=== PATIENT | male | born 1950 | race Caucasian/White ===

== ENCOUNTER 2020-11-20 05:10 | Observation (INO) ==
--- NOTE | 2020-11-14 09:49 | Anesthesiology Consultation ---
Date of Service November 14, 2020 Assessment & Plan (1) Encounter for pre-operative examination: COVID Status: As of 11/07 nurse assessment, patient denies travel to endemic area, known exposure/sick contacts, or symptoms of COVID19. Preoperative COVID19 testing completed on 11/14 at [facility], results pending. Chart Review Chart Review: Acceptable Risk for Surgery and Patient seen in Pre Admission Testing (09/12/20) Teaching & Discussion Instructed NPO after midnight before surgery, except medications with 15 cc of water. Medication instructions provided according to the PAT guidelines. History Surgery Operation Date: 11/20/20 09:35 Proposed Procedures p Left Total Hip Arthroplasty Anterior - Robetrh Fabian DO Case originally scheduled for 10/08, but patient had plans to travel to [place] and the required post-travel quarantine resulted in his surgery date being moved. Patient was seen in PAT by me on 09/12. Vitals and PE below are from that visit. Height/Weight Height: 5 ft 11 in Weight: 96.162 kg Allergies Allergy/AdvReac Type Severity Reaction Status Date / Time No Known Allergies Allergy Verified 11/07/20 13:54 Medications Home Medications Medication Instructions Recorded Confirmed Last Taken meloxicam 15 mg PO QAM 09/05/20 11/07/20 Unknown rosuvastatin 10 mg PO QPM 09/05/20 11/07/20 Unknown vit C,Q-Ii-nazun-lutein-zeaxan 1 tab PO BID 09/05/20 11/07/20 Unknown [PreserVision AREDS-2] Past Medical History Medical History Hearing deficit BL ANGEL History of colon polyps History of DVT (deep vein thrombosis) RLE approx 6 years ago - treated w/ AC - unk etiology History of migraine Hyperlipidemia Osteoarthritis Exercise / Class Metabolic Activity II 4-5 Yardwork/Stairs/Walk up hill Past Family History Family History Other No family history of adverse response to anesthesia Past Surgical History Surgical History History of colonoscopy History of hand surgery Rt finger Past Anesthesia History No Hx of Anesthesia Complications and No Family Hx of Anesthesia Complications History of PONV No Hx of PONV and No Hx of Motion Sickness Social History Smoking Status: Never smoker Do You Dip or Chew Tobacco: No Hx Alcohol Use: Yes Alcohol type: beer alcohol intake frequency: a few times a month Hx Substance Use: No substance use type: does not use Physical Exam Vital Signs BP: 127/76 P: 55bpm SPO2: 96% RA T: 98.4 F R: 16 ENMT Mouth: no dental restorations, no chipped teeth and no loose teeth Thyromental Distance: > or= 3.5 Finger Breadths Mallampati Class: I Large uvula. Neck normal visual inspection; neck extension not limited Respiratory normal respiratory effort Auscultation: lungs clear to auscultation bilaterally Cardiovascular Rate/Rhythm: regular rhythm and + bradycardic Heart Sounds: no murmur Vessels: no carotid bruit Extremities: + edema (RLE trace pitting, normal LLE) Testing Laboratory Results 11/07/20 WBC: 6.94 H/H: 15.1/47.5 PLATELETS: 223 SODIUM: 143 POTASSIUM: 4.3 CHLORIDE: 103 CO2: 29 BUN: 20 CREATININE: 1.0 GLUCOSE: 59 PT: 13.4 PTT: 32 INR: 1.01 UA: WNL 09/12/20 TYPE AND SCREEN: B+, antibody - A1C: 5.8% Electrocardiogram Date: 09/12/20 Findings: + SB @ (52bpm) With PACs. Chest X-Ray Date: 09/12/20 Findings: + NAD
--- NOTE | 2020-11-19 20:46 | History & Physical Report ---
Date of Service November 20, 2020 Assessment & Plan (1) Degenerative joint disease of left hip: I have indicated the patient for left anterior total hip replacement. The risks, benefits and complications of surgery were explained to the patient which include but not limited to infection, acute blood loss, DVT/PE, injury to nerves, vessels, bone, soft tissue, arthrofibrosis, chronic pain, failure of the prosthesis, hip dislocation, leg length discrepancy, need for additional surgery, cardiac and pulmonary events and . The patient wished to proceed with surgery and informed consent was obtained at this time. We will plan for Lovenox post-operatively for DVT prophylaxis, patient has hx for RLE DVT. Upon discharge the patient will be discharged home with home health services. Appropriate clearances by PCP were obtained. History of Present Illness Chief Complaint: Left hip pain/DJD Primary Care Provider: KIRA Wu The patient is a 70 year old male who presents with complaints of severe left hip pain and DJD. The patient has failed outpatient conservative treatments to this point which included NSAIDS, IA corticosteroid injection and a home exercise/walking program. The patient's pain and limited function have progressed to the point where they severely hinder their activities of daily living and they no longer tolerate exercise programs. They are requesting to proceed with total hip replacement surgery. Allergies Allergy/AdvReac Type Severity Reaction Status Date / Time No Known Allergies Allergy Verified 11/07/20 13:54 Home Medications Medication Instructions Recorded Confirmed Type meloxicam 15 mg PO QAM 09/05/20 11/20/20 History rosuvastatin 10 mg PO QPM 09/05/20 11/20/20 History vit C,X-Ri-wkinz-lutein-zeaxan 1 tab PO BID 09/05/20 11/20/20 History [PreserVision AREDS-2] Past Med/Surg History Medical History Hearing deficit BL ANGEL History of colon polyps History of DVT (deep vein thrombosis) RLE approx 6 years ago - treated w/ AC - unk etiology History of migraine Hyperlipidemia Osteoarthritis Surgical History History of colonoscopy History of hand surgery Rt finger Family History Other No family history of adverse response to anesthesia Social History Smoking Status: Never smoker Second Hand Exposure: No; Do You Dip or Chew Tobacco: No; Hx Alcohol Use: Yes Alcohol type: beer Hx Substance Use: No Preferred Language: Cuban Communication Ability: Effective Dragger Required: No Beliefs That Will Affect Care: None Current Living Situation: Spouse Feels Safe at Home: Yes Safety Concerns: Feels Safe At This Time Assistive Devices: Cane, Glasses and Hearing Aid - Bilateral Assistive Devices Comment: cane prn Review of Systems Review of Systems: All systems reviewed & are unremarkable except as noted in HPI & below Constitutional: as per Subjective / HPI Physical Exam Physical Exam: LLE NVSI +EHL/FHL/TA/GS SILT grossly, +2 DP pulse, compartments soft NT, limited painful ROM of the hip, antalgic gait. Constitutional: WD/WN, vitals as above Eyes: PERRL, conjunctivae normal, anicteric sclerae ENMT: external ear and nose normal, oropharynx normal Neck: trachea midline, no thyromegaly Respiratory: normal respiratory effort, lungs clear to auscultation Cardiovascular: RRR, no murmur, no edema Gastrointestinal (Abdomen): normal bowel sounds, soft, nontender, no hepatosplenomegaly Musculoskeletal: no cyanosis or clubbing, extremities motor strength 5/5 Skin: no rashes, warm and dry Psychiatric: A+Ox3, euthymic affect Lymphatic: no cervical or axillary lymphadenopathy Results & Data Results & Data ([facility]) Diagnostic Findings Multiple views of the hip demonstrates severe DJD with complete loss of the joint space. +osteophytes, +sclerosis, +subchondral cysts.
[2020-11-20] MEDS ORDERED: GABAPENTIN 300 MG CAP PO SCH (06:00)
[2020-11-20] MEDS ORDERED: METOCLOPRAMIDE HCL 10 MG TABLET PO SCH (06:00)
[2020-11-20] MEDS ORDERED: FAMOTIDINE 20 MG TAB PO SCH (06:00)
[2020-11-20] MEDS ORDERED: dexAMETHasone 4 MG TAB PO SCH (06:00)
[2020-11-20] MEDS ORDERED: LR 500ML BOLUS, THEN 15ML/HR IV SCH (06:00)
[2020-11-20] MEDS ORDERED: TRANEXAMIC ACID 1,000 MG **IV Pre-op IV SCH (06:00)
[2020-11-20] MEDS ORDERED: ceFAZolin 2000MG 2,000 MG/15 ML SYR IV SCH (06:00)
[2020-11-20] MEDS ORDERED: TRANEXAMIC ACID 1,000 MG **IV Intra-op IV SCH (06:00)
[2020-11-20] MEDS ORDERED: ACETAMINOPHEN 500 MG TAB PO SCH (06:00)
[2020-11-20] MEDS ORDERED: CeleBREX 200 MG CAP PO SCH (06:00)
[2020-11-20] MEDS ORDERED: BUPIVACAINE 0.5 % 5 MG/1 ML PF 10ML VIAL ONE (06:31)
[2020-11-20] MEDS ORDERED: PROPOFOL IV EMULSION 10 MG/ML 20 ML VIAL IV ONE ×2 (06:35→08:39)
[2020-11-20] MEDS ORDERED: MIDAZOLAM HCL 1 MG/ML 2ML VIAL ONE (06:35)
[2020-11-20] MEDS ORDERED: LIDOCAINE HCL 2% 2 ML VIAL/AMP(20MG/ML) INFIL ONE (06:35)
[2020-11-20] MEDS ORDERED: BACITRACIN INJ 50,000 UNIT VIAL ONE (06:54)
--- NOTE | 2020-11-20 06:58 | History & Physical Bridge Note ---
Date of Service November 20, 2020 History & Physical Bridge Note I have examined the patient, reviewed the History & Physical and in the interval since the performance of the History & Physical I have noted the following changes of clinical significance: no changes noted
[2020-11-20] MEDS ORDERED: ATROPINE SULFATE 0.1 MG/ML 10ML SYR IV PRN (08:26)
[2020-11-20] MEDS ORDERED: ePHEDrine sulfate 50 MG/ML AMP IV PRN (08:26)
[2020-11-20] MEDS ORDERED: ePHEDrine sulfate 50 MG/ML SYR ONE (08:39)
--- NOTE | 2020-11-20 09:48 | Fluoroscopy Report ---
FL hip LT 1V HISTORY: 70 years-old Male LT ANTERIOR TOTAL left hip total joint arthroplasty COMPARISON: None TECHNIQUE: 2 spot fluoroscopic images of the left hip were obtained utilizing 43.4 seconds fluoroscop y time. FINDINGS: Moderate right hip osteoarthritis. Left hip total joint arthroplasty. Expected postoperative soft tis mike swelling and deep tissue air. Satisfactory alignment without acute fracture or retained foreign b nilo. IMPRESSION: Left hip total joint arthroplasty with expected postoperative changes. ACT 112: Negative or not required by law. The above report was generated using voice recognition software. It may contain grammatical, syntax o r spelling errors. Electronically signed by: Chon Uribe M.D. 11/20/2020 9:46 AM
--- NOTE | 2020-11-20 09:50 | Post Operative Brief Note ---
Immediate Post Op Note v1 Date of Surgery November 20, 2020 Pre & Post Diagnosis Operation Date: 11/20/20 07:15 Pre-Op Diagnosis: Unilateral Primary Osteoarthritis Hip Left Post-Op Diagnosis: Unilateral Primary Osteoarthritis Hip Left I identified the patient and participated in the time-out.: Yes Procedure Operation Date: 11/20/20 07:15 Actual Procedures p Left Total Hip Arthroplasty Anterior(Left) - Roberth Fabian DO Surgeon Roberth Fabian DO Humidifier Maintenance Worker none Estimated Blood Loss 185 Findings Consistent with Post-Op Diagnosis Fluids 1800 cc LR Specimens femoral head Anesthesia Type Spinal MAC Complications none Disposition Disposition: Recovery Room Overlapping Procedure I was present for: the critical portions of procedure. I was immediately available: during the entire case. Back up surgeon: was not required during procedure.
--- NOTE | 2020-11-20 09:56 | Operative Report ---
Post Operative Report Pre & Post Diagnosis Operation Date: 11/20/20 07:15 Pre-Op Diagnosis: Unilateral Primary Osteoarthritis Hip Left Post-Op Diagnosis: Unilateral Primary Osteoarthritis Hip Left I identified the patient and participated in the time-out.: Yes Procedure Operation Date: 11/20/20 07:15 Actual Procedures p Left Total Hip Arthroplasty Anterior(Left) - Roberth Fabian DO Surgeon Roberth Fabian DO Personnel Officer none Estimated Blood Loss 185 Findings Consistent with Post-Op Diagnosis Fluids 1800 cc LR Specimens femoral head Anesthesia Type Spinal MAC Complications none Disposition Disposition: Recovery Room Indications The patient is a 70-year-old male who presents with severe progressive left hip DJD who has failed outpatient conservative treatments. I indicated the patient for a anterior total hip replacement and the risks and benefits were explained in detail which include but not limited to infection, bleeding, blood clot, damage to surrounding bone, nerves, vessels, soft tissue, hip dislocation, failure of the prosthesis, leg length discrepancy, need for additional surgery and . The patient agreed to proceed with replacement of the hip and informed consent was obtained. Appropriate clearances were obtained. Description of Procedure COMPONENTS USED: [facility] [employer] hip system: Acetabulum size 56, femur size 11 high offset, femoral head 36-3, liner 56x36, acetabular screw 25 mm x 1. DESCRIPTION OF PROCEDURE: Following satisfactory spinal anesthesia, the patient was placed supine on the OR table. The right leg was placed in the well leg chawla and the left leg in the traction device. The left leg was prepared with ChloraPrep and draped sterilely. A surgical timeout was performed, patient identified and site alejandrina verified. Appropriate antibiotics were given. A standard anterior approach in the interval between the sartorius and tensor muscles was performed. Dissection was carried down through subcutaneous tissues. Electrocautery was utilized for hemostasis. Circumflex femoral vessels were identified, tied and ligated. The anterior capsular fat pad was removed and the capsulotomy was performed revealing the arthritic femoral neck and head. A femoral neck cut was made with reciprocating saw and the bone fragments removed. The acetabular self-retraining retractor was placed. Acetabular reaming was completed under fluoroscopic guidance, a 56 shell was impacted into an anatomic position and secured with a acetabular screw. Local anesthetic was placed and following irrigation, the polyethylene liner was placed. The femur was placed into position of external rotation, extension and adduction. Femoral canal was prepared up to the size 11 offset. Trial reduction with a 36-3 neck length head showed good soft tissue tension, leg lengths restored, and good fit and fill of the proximal canal using fluoroscopic landmarks. The hip was dislocated. The trial component was removed. The final implant was placed. The hip was irrigated with sterile saline solution and reduced. A Betadine soak was performed. After 3 minutes, the hip was once more irrigated with copious sterile saline solution with bacitracin. Meron-incisional soft tissue was injected utilizing [place] [employer] which includes a combination of Ropivicaine 0.5% 150mg, Bupivicaine 0.5%/Epinephrine 1:200,000 30ml, Toradol 30mg, Dexamethasone 4mg, Ketamine 10mg, Clonidine 100mcg and NSS 30ml solution. The capsule was then closed with 1-0 Vicryl interrupted figure of eight sutures. The fascia was closed with a running suture of #1 Vicryl, the subcutaneous tissues with 2-0 Vicryl and the skin with a running subcuticular stitch of 3-0 V-Loc. Dermabond prineo and a dry dressing were applied. The patient tolerated the procedure well and was transported to PACU in stable condition. I attest to the content of the Intraoperative Record and any orders documented therein. Any exceptions are noted below.
--- NOTE | 2020-11-20 10:34 | Anesthesiology Progress Note ---
Date of Service November 20, 2020 Anesthesia Post Procedure Vital Signs Vital Signs: Temp Pulse Pulse Resp BP BP Pulse Ox 11/20/20 10:25 64 19 116/69 96 11/20/20 10:15 63 13 117/68 96 11/20/20 10:05 66 16 124/72 92 11/20/20 09:56 36.4 C L 92 H 14 118/70 95 11/20/20 05:20 36.6 C 65 18 147/87 H 97 Pain Intensity Left Hip: Pain Intensity: 0 Transfer of Care Handoff Completed per policy Notes Mental Status: alert / awake / arousable Patient Amnestic to Procedure: Yes Nausea / Vomiting: adequately controlled Pain: adequately controlled Airway Patency, RR, SpO2: stable & adequate BP & HR: stable & adequate Hydration State: stable & adequate Anesthetic Complications: no major complications apparent
--- NOTE | 2020-11-20 10:38 | XRay Report ---
XR hip 1V LT w pelvis HISTORY: 70 years-old Male IN PACU - A/P PELVIS and LATERAL HIP left hip total joint arthroplasty COMPARISON: Fluoroscopic images of the left hip of same day TECHNIQUE: AP view of the pelvis with crosstable lateral view of the left hip FINDINGS: Moderate right hip osteoarthritis. Left hip total joint arthroplasty demonstrates satisfactory alignm ent. There is no acute fracture, dislocation or opaque foreign body. Lateral left hip soft tissue swe lling with deep tissue air. IMPRESSION: Left hip total joint arthroplasty with expected postoperative changes. ACT 112: Negative or not required by law. The above report was generated using voice recognition software. It may contain grammatical, syntax o r spelling errors. Electronically signed by: Chon Uribe M.D. 11/20/2020 10:37 AM
[2020-11-20] MEDS ORDERED: oxyCODONE HCL IR 5 MG TAB (IMMEDIATE RELEASE) PO PRN (10:58)
[2020-11-20] MEDS ORDERED: bisacodyL 10 MG SUPP PR PRN (10:58)
[2020-11-20] MEDS ORDERED: ONDANSETRON INJ 2 MG/ML 2 ML VIAL IV PRN (10:58)
[2020-11-20] MEDS ORDERED: MAGNESIUM HYDROXIDE SUSP 30 ML UDC PO PRN (10:58)
[2020-11-20] MEDS ORDERED: diphenhydrAMINE Capsule 25 MG CAP PO PRN (10:58)
[2020-11-20] MEDS ORDERED: METOCLOPRAMIDE HCL INJ 5 MG/ML 2 ML VIAL IV PRN (10:58)
[2020-11-20] MEDS ORDERED: HYDROmorphone INJ 0.5 MG/0.5 ML SYR IV PRN (10:58)
[2020-11-20] MEDS ORDERED: NALOXONE HCL 0.4 MG/1 ML VIAL/CARP IV PRN (10:58)
[2020-11-20] MEDS: SODIUM CHLORIDE 0.9% 1000ML 1,000 ML IV SCH ×2 (11:23→21:41)
[2020-11-20] MEDS: ACETAMINOPHEN 500 MG TAB PO SCH ×2 (13:25→22:17)
--- NOTE | 2020-11-20 14:34 | Orthopedic Progress Note ---
Date of Service November 20, 2020 Assessment & Plan (1) Degenerative joint disease of left hip: Status post left anterior total hip arthroplasty -Ancef x24 -DVT prophylaxis: SCDs, teds, Lovenox -Weight-bear as tolerates left lower extremity -PT/OT -Postoperative x-ray demonstrates a well aligned well fixed total hip prosthesis without fracture or dislocation -A.m. labs -DC planning Admission and Anticipated Discharge Date Admission Date: November 20, 2020 Subjective Post Operative Progress Note Patient seen sitting up in bed, comfortable, denies complaints, pain well controlled, no acute issues. Review of Systems Review of Systems: All systems reviewed & are unremarkable except as noted in HPI & below Constitutional: as per Subjective / HPI Physical Exam Physical Exam: LLE NVSI +EHL/FHL/TA/GS SILT grossly, +2 DP pulse, compartments soft NT, dressing cdi. Constitutional: WD/WN, vitals as above Results & Data ([facility]) Vital Signs (Past 12 Hours) Vital Signs Temp Pulse Pulse Resp BP BP Pulse Ox 11/20/20 13:27 36.7 C 80 16 145/80 H 94 11/20/20 12:28 36.2 C L 61 16 130/75 97 11/20/20 11:27 36.2 C L 66 16 125/78 94 11/20/20 10:53 36.3 C L 63 16 123/67 94 11/20/20 10:35 36.3 C L 66 16 127/66 96 11/20/20 10:25 64 19 116/69 96 11/20/20 10:15 63 13 117/68 96 11/20/20 10:05 66 16 124/72 92 11/20/20 09:56 36.4 C L 92 H 14 118/70 95 11/20/20 05:20 36.6 C 65 18 147/87 H 97
[2020-11-20] MEDS: ceFAZolin 2000MG 2,000 MG/15 ML SYR IV SCH ×2 (14:37→22:18)
[2020-11-20] MEDS: DOCUSATE SODIUM 100 MG CAP PO SCH (20:27)
[2020-11-20] MEDS ORDERED: ROSUVASTATIN CALCIUM 10 MG TAB PO SCH (21:00)
[2020-11-20] MEDS ORDERED: SENNA 8.6 MG TAB PO SCH (21:00)
[2020-11-21] MEDS: ACETAMINOPHEN 500 MG TAB PO SCH ×2 (04:39→13:50)
[2020-11-21 06:51] LABS: Eosinophils # (auto) 0.01 K/uL (0-0.5); Eosinophils % (auto) 0.1 %; Hematocrit (blood only) 30.8 % (42-52); Hemoglobin 10.5 g/dL (14.0-18.0); Immature Granulocytes # (auto) 0.03 K/uL (0.00-0.02); Immature Granulocytes % (auto) 0.2 %; Lymphocytes # (auto) 1.73 K/uL (1.2-3.4); Lymphocytes % (auto) 13.4 %; Mean Corpuscular Hgb Conc 34.1 g/dL (32-36); Mean Corpuscular Volume 90.9 fL (80-100); Mean Platelet Volume 10.5 fL (7.4-10.4); Monocytes # (auto) 1.47 K/uL (0.11-0.59); Monocytes % (auto) 11.4 %; Neutrophils # (auto) 9.69 K/uL (1.4-6.5); Neutrophils % (auto) 74.9 %; Platelet Count 189 K/uL (130-400); RDW Coefficient of Variation 13.2 % (11.5-14.5); RDW Standard Deviation 43.5 fL (36.4-46.3); Red Blood Count 3.39 M/uL (4.7-6.1); White Blood Count 12.93 K/uL (4.8-10.8)
[2020-11-21 07:28] LABS: BUN Creatinine Ratio 26.2 (10-20); Creatinine Clr Calc Pharmacy 85.3 ml/min; Est GFR (African American) 89.1; Est GFR (Non-African American) 76.8; Potassium 4.2 mmol/L (3.5-5.1)
[2020-11-21] MEDS: DOCUSATE SODIUM 100 MG CAP PO SCH (08:57)
[2020-11-21] MEDS ORDERED: MULTIVITAMIN TAB PO SCH (09:00)
[2020-11-21] MEDS ORDERED: ENOXAPARIN INJ 40 MG/0.4 ML SYR SQ SCH (09:00)
--- NOTE | 2020-11-21 09:43 | Orthopedic Progress Note ---
Date of Service November 21, 2020 Assessment & Plan (1) Degenerative joint disease of left hip: Status post left anterior total hip arthroplasty POD#1 -Ancef x24 -DVT prophylaxis: SCDs, teds, Lovenox -Weight-bear as tolerates left lower extremity -PT/OT -Postoperative x-ray demonstrates a well aligned well fixed total hip prosthesis without fracture or dislocation -A.m. labs - as above, hgb 10.5 -DC planning - home with Admission and Anticipated Discharge Date Admission Date: November 20, 2020 Subjective Post Operative Progress Note Patient seen sitting up at bedside, comfortable, denies complaints, pain well controlled, no acute issues. Denies F/C/N/V/SOB/CP. Review of Systems Review of Systems: All systems reviewed & are unremarkable except as noted in HPI & below Constitutional: as per Subjective / HPI Physical Exam Physical Exam: LLE NVSI +EHL/FHL/TA/GS SILT grossly, +2 DP pulse, compartments soft NT, dressing cdi. Constitutional: WD/WN, vitals as above Results & Data ([facility]) Vital Signs (Past 12 Hours) Vital Signs Temp Pulse Resp BP Pulse Ox 11/21/20 07:00 36.5 C 70 18 145/78 H 96 11/21/20 04:36 37.1 C 75 16 107/61 97 11/21/20 00:15 36.7 C 71 16 116/65 93 Laboratory Results 11/21/20 11/21/20 Range/Units 05:55 05:55 WBC 12.93 H (4.8-10.8) K/uL RBC 3.39 L (4.7-6.1) M/uL Hgb 10.5 L (14.0-18.0) g/dL Hct 30.8 L (42-52) % MCV 90.9 (80-100) fL MCH 31.0 (25-34) pg MCHC 34.1 (32-36) g/dL RDW Std Deviation 43.5 (36.4-46.3) fL RDW Coeff of Cathy 13.2 (11.5-14.5) % Plt Count 189 (130-400) K/uL MPV 10.5 H (7.4-10.4) fL Immature Gran % (Auto) 0.2 % Neut % (Auto) 74.9 % Lymph % (Auto) 13.4 % Meagher % (Auto) 11.4 % Eos % (Auto) 0.1 % Baso % (Auto) 0.0 % Neut # (Auto) 9.69 H (1.4-6.5) K/uL Lymph # (Auto) 1.73 (1.2-3.4) K/uL Meagher # (Auto) 1.47 H (0.11-0.59) K/uL Eos # (Auto) 0.01 (0-0.5) K/uL Baso # (Auto) 0.00 (0-0.2) K/uL Immature Gran # (Auto) 0.03 H (0.00-0.02) K/uL Sodium 140 (136-145) mmol/L Potassium 4.2 (3.5-5.1) mmol/L Chloride 108 H (98-107) mmol/L Carbon Dioxide 28 (21-32) mmol/L Anion Gap 4.0 (3-11) BUN 26 H (7-18) mg/dl Creatinine 0.99 (0.6-1.4) mg/dl Est Cr Clr Drug Dosing 85.3 ml/min Est GFR ( Amer) 89.1 Est GFR (Non-Af Amer) 76.8 BUN/Creatinine Ratio 26.2 H (10-20) Glucose 114 H (70-99) mg/dl Calcium 8.0 L (8.5-10.1) mg/dl
--- NOTE | 2020-11-21 18:08 | Discharge Summary ---
Date of Service November 21, 2020 Admission HPI Per Admitting Provider The patient is a 70 year old male who presents with complaints of severe left hip pain and DJD. The patient has failed outpatient conservative treatments to this point which included NSAIDS, IA corticosteroid injection and a home exercise/walking program. The patient's pain and limited function have progressed to the point where they severely hinder their activities of daily living and they no longer tolerate exercise programs. They are requesting to proceed with total hip replacement surgery. Principal Diagnosis Left anterior total hip replacement -Left hip DJD Discharge Exam LLE NVSI +EHL/FHL/TA/GS SILT grossly, +2 DP pulse, compartments soft NT, dressing cdi. Constitutional WD/WN, vitals as above Discharge Data Allergies Allergy/AdvReac Type Severity Reaction Status Date / Time No Known Allergies Allergy Verified 11/07/20 13:54 Consultations 11/21/20 08:00 Consult Case Management - Discharge Planning Routine Procedures Performed Operation Date: 11/20/20 07:15 Actual Procedures p Left Total Hip Arthroplasty Anterior(Left) - Roberth Fabian DO Ordered Studies 11/20/20 07:15 FL fluoroscopy <1hr Routine FL hip LT 1V Routine Hospital Course (1) Degenerative joint disease of left hip: The patient is a 70 -year-old male who presents with long standing history of severe left hip DJD and failed outpatient conservative treatments. The patient's symptoms have progressed to the point where it has been difficult to perform even normal activities of daily living. I indicated the patient for a left anterior total hip arthroplasty, the risks, benefits and complications of the procedure include but not limited to infection, bleeding, damage to bone, nerves, vessels, surrounding soft tissue, may develop blood clots, loss of function, leg length discrepancy, dislocation, failure of the components, loosening of the components, the need for additional surgery and . The patient wished to proceed with surgery at this time and informed consent was obtained. Hospital Course: On 11/20/20 the patient was taken to the operating room, adequate anesthesia administered and underwent a left anterior total hip arthroplasty. The patient tolerated the procedure well and was taken to the PACU in stable condition. Post-operatively the patient was started on a DVT ppx medication and given appropriate IV antibiotics. Consults were placed to physical therapy, occupational therapy and case management. On POD#1, the patient did well overnight and their pain was well controlled. Labs were drawn and the Hgb was 10.5. The patient progressed well with PT. Dressings were changed at this time and the incision was clean, dry and intact. The patients hospital stay was relatively uneventful and they were deemed stable by the orthopedic team and consultants to be discharged home with on 11/21/20. Discharge Instructions: Upon discharge the patient may weight bear as tolerates through their operative extremity. They were instructed to keep the incision clean and dry at all times. The patient may shower but should not submerge the incision, avoid bathing, pools and hot tubs. The patient was given a script for pain medication and should take as instructed. The patient was given a script for DVT ppx Lovenox 40mg daily and should take as directed. The patient was instructed to not drive or travel for long distances until cleared to do so. If the patient develops any symptoms of fevers, chills, nausea, vomiting, increased redness, swelling, pain or drainage from the surgical site, they should notify the office and/or proceed to the nearest emergency room. The patient should follow up in 10-14 days after surgery for their routine post-operative follow-up appointment and should call the office, to confirm the date and time. Status post left anterior total hip arthroplasty POD#1 -Ancef x24 -DVT prophylaxis: SCDs, teds, Lovenox -Weight-bear as tolerates left lower extremity -PT/OT -Postoperative x-ray demonstrates a well aligned well fixed total hip prosthesis without fracture or dislocation -A.m. labs - as above, hgb 10.5 -DC planning - home with Total Time Total Time Spent Total Time Spent (In Minutes): 30 Discharge Plan Discharge Items Patient Disposition: Home - Home Health Services Reason For Visit: Unilateral Primary Osteoarthritis Hip Left Discharge Diagnosis: Left anterior total hip replacement -Left hip DJD Condition on Discharge: Good Activity: Per Instructions section Lifting: Wait until after follow-up appointment Bathing: Keep incision dry Bathing Comment: No bathing, pools or hot tubs. Sexual Activity: Wait until after follow-up appointment Exercise/Sports: Wait until after follow-up appointment Driving/Machine Use: No driving Weightbearing: Left weightbearing Non-emergency contact: Primary Care Provider and Surgeon Call non-emergency contact if: you have any medication questions, your symptoms worsen, your pain is not controlled, your pain is worsening, your pain is unusual for you, your pain is concerning for you, you have a fever, your temperature is above 101, your wound has increased redness, your wound has increased drainage and your wound pain has increased Follow-up/Referrals: Estelita Rutledge CRNP [Primary Care Provider] - Diet: Regular Addtl Attending Provider Instructions: ACTIVITY RECOMMENDATIONS: SELF CARE INSTRUCTIONS AFTER TOTAL HIP REPLACEMENT : Direct Anterior Approach Until the incision and soft tissues around your hip have healed, there is a possibility that the hip prosthesis could dislocate. A. Hip flexion ( Up & Down out of chair or steps ) may be difficult. This is normal. B. Numbness in front of the thigh is also normal for a few weeks. C. Use hand rails when walking on stairs. D. Wear low heeled shoes with non-slip soles. E. Be sure that your floors are free of things that could trip you - throw rugs, electrical cords, small objects. Avoid wet and waxed floors, especially with crutches and canes. F. Try to walk several times a day with rest periods between. G. Continue with all the exercises taught to you in the hospital. Again, make walking a part of your daily routine. SPECIAL CARE INSTRUCTIONS: VERY IMPORTANT TO READ AND REVIEW A. You may still be at risk for phlebitis and blood clots. 1. Wear surgical stockings (VANDANA hose) for 2 weeks after surgery to improve circulation and reduce swelling. 2. Take LOVENOX 40mg daily for 4 weeks or as directed by your doctor. This is your blood thinner. 3. High risk patients may be prescribed a stronger blood thinner if necessary. 4. If you are on Coumadin normally, your family doctor/district court justice should monitor your blood work. Expect a phone call the day of or the day after bloodwork is drawn to adjust your dosage. B. You must take antibiotics before having dental work, bladder, bowel and other surgery. Your doctor will provide you with a permanent card to carry describing precautions. C. Call [facility] if you have a fever, redness or swelling around the incision, cloudy drainage from incision, or sudden increase in pain in your hip, not relieved by your regular pain medication. D. Please call the office at if you have any concerns or questions about your operation or recovery. * YOU MAY SHOWER, NO TUB BATHS UNTIL CLEARED BY YOUR DOCTOR. - Keep an extra close eye on the top portion of your incision. Be sure to keep clean & dry. * WEAR VANDANA HOSE 20 HOURS PER DAY FOR 2 WEEKS. * YOU MAY PROGRESS FROM A WALKER, TO A CANE, TO INDEPENDENT AT YOUR OWN PACE. * MOST PATIENTS WILL HAVE HOME NURSING FOR THERAPY. IF YOU DECIDE TO DO OUTPATIENT PHYSICAL THERAPY, PLEASE SCHEDULE THIS 3 TIMES PER WEEK. * DERMABOND Prineo- This is a mesh tape dressing that is covered with glue. It should remain in place until the incision is properly healed, usually 10-14 days. This dressing is designed to naturally slough off. You may trim the excess mesh tape as it peels off. Incision may be briefly wet in a shower. Dry immediately by blotting with a clean, dry towel. Do not bath or swim until instructed by your doctor. Do not scratch, rub, or pick at the dressing. Do not apply any topical ointments or lotions until dressing is completely removed and/or instructed by your doctor. There may be a small piece of suture material at one end of your incision. Do not pull or trim this. If it is bothersome or catching on clothing, you may cover it with a band-aid. FOLLOW UP VISIT: If appointment is not already scheduled: Please call [facility] to make a follow-up appointment for 2 weeks after your surgery at . Pending Studies at Discharge: No Stand-Alone Forms: My [facility], Opioid Pain Management, Smoking Cessation Medications and DC Order Prescriptions: New enoxaparin 40 mg/0.4 mL Syringe 40 mg subcut Q24H Qty: 28 RF: 0 acetaminophen 500 mg Tablet 1,000 mg PO Q8 PRN (Reason: pain/fevers) Qty: 90 RF: 0 oxycodone 5 mg Tablet 5 mg PO Q6H MDD 4 PRN (Reason: pain) Qty: 30 RF: 0 sennosides [Senokot] 8.6 mg Tablet 17.2 mg PO HS PRN (Reason: constipation) Qty: 28 RF: 0 Continued rosuvastatin 10 mg Tablet 10 mg PO QPM RF: 0 PreserVision AREDS-2 [id number] Capsule 1 tab PO BID RF: 0 Discontinued meloxicam 15 mg Tablet 15 mg PO QAM RF: 0 Discharge Orders: Discharge Order (Routine); Ordered 11/21/20 Ordered By: Roberth Hernández/Other Patient Handouts: DVT Post Op Prevention, Preventing Deep Vein Thrombosis, Enoxaparin injection Admission Data Admit Date/Time: 11/20/20 10:04 Attending Provider: Roberth Fabian Admit Provider: Roberth Fabian Primary Care Provider: Estelita Rutledge Other Providers: [facility],Home Healthcare Other Interventions: Discharge Summary Assessment (RN) Last Done: 11/21/20 14:24
[2022-11-20] MEDS ORDERED: ROPIVACAINE 0.5% HCL/PF 150 MG, BUPIVACAINE 0.75% MPF 20 ML, EPINEPHrine 30MG/30ML (OR ... INFIL SCH (06:00)
== END 2020-11-21 15:18 | disposition home health service (06) ==
LOC: ASU 05:10 → 3N 05:10